=== PATIENT | female | born 1965 | race Hispanic/Latino ===

== ENCOUNTER 2019-09-24 15:42 | Observation (INO) | payer SELFPAY ==
[~2019-09-24] VITALS: Ht 152.4 cm; Wt 53.3 kg
[2019-09-24] MEDS ORDERED: MULTIVITAMINS- 12 INJECTION 10 ML, FOLIC ACID MDV 5 MG, THIAMINE HCL INJ 100 MG in SODI... IV ONE (16:30)
[2019-09-24 16:44] LABS: BASOPHILS # (AUTO) 0.1 (0.0-0.1); BASOPHILS % 1.4 % (0.0-1.0); EOSINOPHILS % 0.5 % (0.0-6.0); HEMATOCRIT 29.6 % (34.2-44.1); HEMOGLOBIN 9.7 g/dL (12.0-16.0); LYMPHOCYTES # (AUTO) 2.3 (1.0-3.2); LYMPHOCYTES % 27.6 % (18.0-39.1); MEAN CORPUSCULAR HEMOGLOBIN 29.1 pg (28-32); MEAN CORPUSCULAR HGB CONC 32.8 g/dL (31-35); MEAN CORPUSCULAR VOLUME 88.9 fL (81-99); MONOCYTES # (AUTO) 0.6 (0.2-0.8); MONOCYTES % 6.8 % (4.4-11.3); NEUTROPHILS # (AUTO) 5.4 (2.1-6.9); NEUTROPHILS % 63.3 % (38.7-80.0); PLATELET COUNT 85 x10e3/uL (140-360); RED BLOOD COUNT 3.33 x10e6/uL (3.6-5.1); RED CELL DISTRIBUTION WIDTH 19.4 % (11.7-14.4)
[2019-09-24 16:56] LABS: ALANINE AMINOTRANSFERASE 24 IU/L (0-55); ALBUMIN 3.6 g/dL (3.5-5.0); ALBUMIN/GLOBULIN RATIO 0.6 (0.8-2.0); ALKALINE PHOSPHATASE 225 IU/L (40-150); ANION GAP 20.4 mmol/L (8-16); BLOOD UREA NITROGEN < 5 mg/dL (7-26); CALCIUM 8.2 mg/dL (8.4-10.2); CARBON DIOXIDE 21 mmol/L (22-29); CHLORIDE 90 mmol/L (98-107); CREATINE KINASE 92 IU/L (29-168); CREATININE, SERUM 0.53 mg/dL (0.57-1.11); EST GLOMERULAR FILTRATION RATE > 60 ML/MIN (60-); GLUCOSE 95 mg/dL (74-118); INR 1.14; POTASSIUM 3.4 mmol/L (3.5-5.1); PROTHROMBIN TIME 15.2 seconds (11.9-14.5); SODIUM 128 mmol/L (136-145)
[2019-09-24 16:58] LABS: BUN/CREATININE RATIO 9 (6-25)
--- NOTE | 2019-09-24 17:15 | Diagnostic Imaging Report ---
Exam: Head CT without contrast History: Altered mental status Comparison studies: None Technique: Axial images were obtained from the skull base to the vertex. Coronal and sagittal images reconstructed from the axial data. Dose modulation, iterative reconstruction, and/or weight based adjustment of the mA/kV was utilized to reduce the radiation dose to as low as reasonably achievable. Radiation dose: Total DLP: 1842 mGy*cm. Estimated effective dose: DLP x 0.015 Intravenous contrast: None Findings: Scalp: No abnormalities. Bones: No fractures, blastic or lytic lesions. Brain sulci: Prominent. Ventricles: Mild compensatory dilatation. No hydrocephalus. Extra-axial spaces: No masses, no fluid collection. Parenchyma: No mass, acute hemorrhage or acute or chronic cortical insults. Ill-defined confluent hypodensities throughout the supratentorial white matter are nonspecific but may be chronic microvascular ischemic changes. Sellar/suprasellar region: No abnormalities. Craniocervical junction: Patent foramen magnum. No Chiari one malformation. Incidental findings: Atherosclerotic calcifications in the carotid siphons.. IMPRESSION: No acute intracranial abnormalities. Chronic findings: 1. Moderate generalized parenchymal volume loss. 2. Moderate microvascular ischemic changes. Signed by: Dr. Terell Washburn M.D. on 09/24/2019 5:11 PM
[2019-09-24 17:53] LABS: CLARITY,URINE HAZY (CLEAR); COLOR,URINE YELLOW (YELLOW); KETONES,URINE NEGATIVE (NEGATIVE); LEUKOCYTE ESTERASE ,URINE TRACE (NEGATIVE); NITRITE,URINE POSITIVE (NEGATIVE); PROTEIN,URINE DIPSTICK NEGATIVE (NEGATIVE)
[2019-09-24 17:54] LABS: AMPHETAMINES SCREEN,URINE NEGATIVE (NEGATIVE); PHENCYCLIDINE SCREEN,URINE NEGATIVE (NEGATIVE)
[2019-09-24 17:55] LABS: BACTERIA,URINE MODERATE /HPF; BENZODIAZEPINES SCREEN,URINE NEGATIVE (NEGATIVE); BILIRUBIN,URINE NEGATIVE (NEGATIVE); EPITHELIAL CELLS,URINE FEW /LPF; RBC,URINE 0-5 /HPF (0-5); URINE UROBILINOGEN 0.2 mg/dL (0.2 - 1); WBC,URINE (MAN) 0-5 /HPF (0-5)
--- NOTE | 2019-09-24 17:56 | Emergency Department Note ---
History of Present Illnes History of Present Illness Chief Complaint: General Medicine Complaints History of Present Illness This is a 54 year old female PT BROUGHT IN BY HER BROTHER. MAN CAME TO FRONT WINDOW ASKED FOR HELP GETTING HIS SISTER GETTING OUT OF HIS TRUCK. RN'S X 2 CAME TO TRUCK WITH W/C AND PT STANDING AT TRUCK DOOR WITH HER PANTS DOWN TO HER ANKLES AND BEER CANS ALL IN TRUCK. BROTHER HANDED NURSES PAPERWORK FROM [facility] DATED 09/22/19 SENDING PT TO AN ER FOR ANEMIA, LOW PLATELETS, ELEVATED LIVER ENZYMES AND FATIGUE (DR TUCKER HENDERSON MD). PT IS AWAKE, CONFUSED, POOR HYGINE APPEARANCE. UNFILLED RX OF PAXIL, THIAMINE, AND PREDNISONE. PT AND BROTHER POOR HISTORIANS NOT FORTH COMING WITH ANY HELPFUL INFORMATION. Historian: Patient Arrival Mode: Car Direct Marketing Analyst Required: No Onset (how long ago): day(s) Radiation: Reports non-radiation Severity: moderate Onset quality: gradual Timing of current episode: intermittent Progression: waxing and waning Chronicity: new Context: Denies recent illness Relieving factors: none Exacerbating factors: none Associated symptoms: Reports denies other symptoms Treatments prior to arrival: none Past Medical/Family History Physician Review I have reviewed the patient's past medical and family history. Any updates have been documented here. Past Medical History Recent Fever: No Clinical Suspicion of Infectio: No New/Unexplained Change in Ment: No Past Medical History: Liver Disease Other Medical History: ?ETOH ABUSE/CIRROHSIS UNSURE Past Surgical History: None Social History Smoking Cessation: Unknown if ever smoked Counseling Performed: No Alcohol Use: Daily Any Illegal Drug Use: No TB Exposure/Symptoms: No Physically hurt or threatened: No Family History Family history of heart diseas: No Other Any Pre-Existing Lines (PICC,: No Review of Systems Review of Systems Constitutional: Reports no symptoms EENTM: Reports no symptoms Cardiovascular: Reports no symptoms Respiratory: Reports no symptoms Gastrointestinal: Reports no symptoms Genitourinary: Reports no symptoms Musculoskeletal: Reports no symptoms Integumentary: Reports no symptoms Neurological: Reports as per HPI Psychological: Reports no symptoms Endocrine: Reports no symptoms Hematological/Lymphatic: Reports no symptoms Physical Exam Related Data Allergies: Coded Allergies: No Known Allergies (Unverified , 09/24/19) Triage Vital Signs Vital Signs Date Time Temp Pulse Resp B/P (MAP) Pulse Ox O2 Delivery O2 Flow Rate FiO2 09/24/19 15:45 98.4 77 16 127/83 97 Room Air Vital signs reviewed: Yes Physical Exam CONSTITUTIONAL Constitutional: Present well-developed, Present well-nourished HENT HENT: Present normocephalic, Present atraumatic, Present oropharynx clear/moist, Present nose normal HENT L/R: Present left ext ear normal, Present right ext ear normal EYES Eyes: Reports PERRL, Reports conjunctivae normal NECK Neck: Present ROM normal PULMONARY Pulmonary: Present effort normal, Present breath sounds normal CARDIOVASCULAR Cardiovascular: Present regular rhythm, Present heart sounds normal, Present capillary refill normal, Present normal rate GASTROINTESTINAL Abdominal: Present soft, Present nontender, Present bowel sounds normal GENITOURINARY Genitourinary: Present exam deferred SKIN Skin: Present warm, Present dry MUSCULOSKELETAL Musculoskeletal: Present ROM normal NEUROLOGICAL Neurological: Present alert, Present no gross motor or sensory deficits, Present other (ORIENTED TO NAME AND TIME, NOT PLACE); Absent cranial nerve deficit, Absent sensory deficit, Absent weakness PSYCHOLOGICAL Psychological: Present mood/affect normal, Present judgement normal Results Laboratory Result Diagram: 09/24/19 1557 09/24/19 1557 Laboratory Laboratory Tests Test 09/24/19 17:12 09/24/19 15:57 White Blood Count 8.44 x10e3/uL (4.8-10.8) Red Blood Count 3.33 x10e6/uL (3.6-5.1) Hemoglobin 9.7 g/dL (12.0-16.0) Hematocrit 29.6 % (34.2-44.1) Mean Corpuscular Volume 88.9 fL (81-99) Mean Corpuscular Hemoglobin 29.1 pg (28-32) Mean Corpuscular Hemoglobin Concent 32.8 g/dL (31-35) Red Cell Distribution Width 19.4 % (11.7-14.4) Platelet Count 85 x10e3/uL (140-360) Neutrophils (%) (Auto) 63.3 % (38.7-80.0) Lymphocytes (%) (Auto) 27.6 % (18.0-39.1) Monocytes (%) (Auto) 6.8 % (4.4-11.3) Eosinophils (%) (Auto) 0.5 % (0.0-6.0) Basophils (%) (Auto) 1.4 % (0.0-1.0) Neutrophils # (Auto) 5.4 (2.1-6.9) Lymphocytes # (Auto) 2.3 (1.0-3.2) Monocytes # (Auto) 0.6 (0.2-0.8) Eosinophils # (Auto) 0.0 (0.0-0.4) Basophils # (Auto) 0.1 (0.0-0.1) Absolute Immature Granulocyte (auto 0.03 x10e3/uL (0-0.1) Prothrombin Time 15.2 seconds (11.9-14.5) Prothromb Time International Ratio 1.14 Activated Partial Thromboplast Time 40.0 seconds (23.8-35.5) Sodium Level 128 mmol/L (136-145) Potassium Level 3.4 mmol/L (3.5-5.1) Chloride Level 90 mmol/L (98-107) Carbon Dioxide Level 21 mmol/L (22-29) Anion Gap 20.4 mmol/L (8-16) Blood Urea Nitrogen < 5 mg/dL (7-26) Creatinine 0.53 mg/dL (0.57-1.11) Estimat Glomerular Filtration Rate > 60 ML/MIN (60-) BUN/Creatinine Ratio 9 (6-25) Glucose Level 95 mg/dL (74-118) Calcium Level 8.2 mg/dL (8.4-10.2) Total Bilirubin 1.6 mg/dL (0.2-1.2) Aspartate Amino Transf (AST/SGOT) 138 IU/L (5-34) Alanine Aminotransferase (ALT/SGPT) 24 IU/L (0-55) Alkaline Phosphatase 225 IU/L (40-150) Creatine Kinase 92 IU/L (29-168) Creatine Kinase MB 1.40 ng/mL (0-5.0) Troponin I 0.003 ng/mL (0-0.300) Total Protein 9.5 g/dL (6.5-8.1) Albumin 3.6 g/dL (3.5-5.0) Globulin 5.9 g/dL (2.3-3.5) Albumin/Globulin Ratio 0.6 (0.8-2.0) Lab results reviewed: Yes Imaging Imaging results reviewed: Yes Impressions CT BRAIN WITHOUT CONTRAST IMPRESSION: No acute intracranial abnormalities. Chronic findings: 1. Moderate generalized parenchymal volume loss. 2. Moderate microvascular ischemic changes. Signed by: Dr. Terell Washburn M.D. on 09/24/2019 5:11 PM Procedures 12 Lead ECG Interpretation ECG Interpretation : ECG: ECG 1 Direct Marketing Analyst: Interpreted by ED physician Date: Sep 24, 2019 Time: 16:12 Rhythm: sinus rhythm Rate: normal (75) QRS axis: normal ST segments normal: Yes T waves normal: Yes Clinical Impression: normal ECG Critical Care Time Total Critical Care Time (min): 30 Critical care time exclusive o: separately billable procedures Critcal care necessary due to: LADLE MECHANIC failure or compromise, hepatic failure, metabolic failure Critcal care time spent by me: discussion w primary provider, evaluation patient response to tx, examination of patient, order/perform tx or interventions, order/review laboratory studies, order/review radiographic studies, re-evaluation of patient condition Assessment & Plan Medical Decision Making MDM AMS, APPEARS TO BE ALCOHOLIC WITH LIKELY CIRRHOSIS - CBC, CHEM, ECG, CARDIACS, CT BRAIN, CXR, NH3, UA, LACTIC, BLD CX'S - R/O SEPSIS, HEPATIC ENCEPH, VLADISLAV CTROLYTE ABNL, UTI, STEMI/NSTEMI, SDH/EPIDURAL BLEED, CVA Reassessment Reassessment PT STILL NOT ORIENTED AND WITH ETOH 481 AND ELEVATED NH3 SHE IS NOT COMPETENT TO LEAVE - SHE TOLD NURSE SHE WAS GOING HOME. I EXPLAINED REASONS SHE NEEDS TO STAY OVERNIGHT AND SEEMED TO UNDERSTAND AND AGREES TO STAY Assessment & Plan Final Impression: (1) Altered mental status (2) Hyponatremia (3) Hypomagnesemia (4) Hepatic encephalopathy (5) Alcoholic cirrhosis of liver (6) ETOH abuse Depart Disposition: ADMITTED Last Vital Signs Date Time Temp Pulse Resp B/P (MAP) Pulse Ox O2 Delivery O2 Flow Rate FiO2 09/24/19 16:42 76 16 106/74 98 Room Air 09/24/19 15:45 98.4 Medications in the ED Multivitamins 10 ml/Folic Acid 5 mg/Thiamine HCl 100 mg/Sodium Chloride 1,012 ml @ 250 mls/hr Q4H3M ONCE IV ; Start 09/24/19 at 16:30; Stop 09/24/19 at 20:32 VNO MARIN MD Sep 24, 2019 17:56
--- NOTE | 2019-09-24 18:03 | Diagnostic Imaging Report ---
EXAMINATION: CHEST SINGLE (PORTABLE) INDICATION: Altered mental status COMPARISON: None FINDINGS: TUBES and LINES: None. LUNGS: Normal lung volumes. Lungs are clear. No consolidations. Bibasilar atelectasis. PLEURA: No pleural effusion or pneumothorax. HEART AND MEDIASTINUM: The cardiomediastinal silhouette is unremarkable. BONES AND SOFT TISSUES: No acute osseous lesion. Soft tissues are unremarkable. UPPER ABDOMEN: No free air under the diaphragm. IMPRESSION: No acute thoracic radiographic abnormality. Bibasilar atelectasis. Signed by: Deepak Connolly MD on 09/24/2019 6:00 PM
[2019-09-24] MEDS ORDERED: MAGNESIUM SULFATE 2GM/50ML 50 ML IV ONE (18:30)
[2019-09-24] MEDS ORDERED: LORAZEPAM INJ 2 MG/ML VIAL IV PRN (18:45)
--- OUTSIDE RECORDS SUMMARY | 2019-09-24 18:54 | XMS REPORT | Continuity of Care Document ---
Author Author [facility] Organization [facility] Address [address] [place] [address] Dr. [address] [place] [id number] Phone Unavailable Care Team Providers Care Shirt Trimmer Name Role Phone Lisa MARIN Attphys Unavailable Problems This patient has no known problems. Allergies, Adverse Reactions, Alerts This patient has no known allergies or adverse reactions. Medications This patient has no known medications. Procedures This patient has no known procedures. Results Test Description Test Time Test Comments Results Result Comments Source CHEST SINGLE (PORTABLE) 2019-09-24 17:47:00 [facility] [address] [place] [address] Patient Name: ADDY STEWARD MR #: [id number] : 1965 Age/Sex: 54/F Req #: [id number] Adm Physician: Ordered by: VON MARIN MD Report #: [id number] Location: ER Room/Bed: Procedure: [id number] DX/CHEST SINGLE (PORTABLE) Exam Date: 09/24/19 Exam Time: 1640 REPORT STATUS: Signed EXAMINATION: CHEST SINGLE (PORTABLE) INDICATION: Altered mental status COMPARISON: None FINDINGS: TUBES and LINES: None. LUNGS: Normal lung volumes. Lungs are clear. No consolidations. Bibasilar atelectasis. PLEURA: No pleural effusion or pneumothorax. HEART AND MEDIASTINUM: The cardiomediastinal silhouette is unremarkable. BONES AND SOFT TISSUES: No acute osseous lesion. Soft tissues are unremarkable. UPPER ABDOMEN: No free air under the diaphragm. IMPRESSION: No acute thoracic radiographic abnormality. Bibasilar atelectasis. Signed by: Nba Mead MD on 09/24/2019 6:00 PM Dictated By: NBA MEAD MD 1800 Transcribed By: HARDIK on 09/24/19 1800 COPY TO: VON MARIN MD CT BRAIN WO 2019-09-24 17:06:00 [place] [address] Patient Name: ADDY STEWARD MR #: [id number] : 1965 Age/Sex: 54/F Req #: [id number] Adm Physician: Ordered by: VON MARIN MD Report #: [id number] Location: ER Room/Bed: Procedure: [id number] CT/CT BRAIN WO Exam Date: 09/24/19 Exam Time: 1640 REPORT STATUS: Signed Exam: Head CT without contrast History: Altered mental status Comparison studies: None Technique: Axial images were obtained from the skull base to the vertex. Coronal and sagittal images reconstructed from the axial data. Dose modulation, iterative reconstruction, and/or weight based adjustment of the mA/kV was utilized to reduce the radiation dose to as low as reasonably achievable. Radiation dose: Total DLP: 1842 mGy*cm. Estimated effective dose: DLP x 0.015 Intravenous contrast: None Findings: Scalp: No abnormalities. Bones: No fractures, blastic or lytic lesions. Brain sulci: Prominent. Ventricles: Mild compensatory dilatation. No hydrocephalus. Extra-axial spaces: No masses, no fluid collection. Parenchyma: No mass, acute hemorrhage or acute or chronic cortical insults. Ill-defined confluent hypodensities throughout the supratentorial white matter are nonspecific but may be chronic microvascular ischemic changes. Sellar/suprasellar region: No abnormalities. Craniocervical junction: Patent foramen magnum. No Chiari one malformation. Incidental findings: Atherosclerotic calcifications in the carotid siphons.. IMPRESSION: No acute intracranial abnormalities. Chronic findings: 1. Moderate generalized parenchymal volume loss. 2. Moderate microvascular ischemic changes. Signed by: Dr. Nidia Washburn M.D. on 09/24/2019 5:11 PM Dictated By: NIDIA WASHBURN MD 10 Transcribed By: HARDIK on 09/24/191710 COPY TO: VON MARIN MD
[2019-09-24] MEDS ORDERED: CEFTRIAXONE SOD 1 GM/NS 50 ML 50 ML IV ONE (19:00)
--- NOTE | 2019-09-24 19:40 | NUR ---
Patient arrived to unit from ER. Currently awake and resting in bed, respirations even and unlabored on room air, vital signs stable, no s/s of distress at this time. Telemetry showing sinus rhythm. Patient oriented to room, hospital policies, and plan of care. Bed locked and in lowest position, side rails upx3, alarm on, call light placed within reach. Patient instructed to call for assistance if needed, verbalized understanding. All safety measures in place.
[2019-09-24 20:00] VITALS: BP 127/75
[2019-09-24 20:07] VITALS: BP 127/75
[2019-09-24] MEDS ORDERED: B-1100 M1 PO (20:29)
[2019-09-24] MEDS ORDERED: PREDNISONE10 MG PO (20:29)
[2019-09-24] MEDS ORDERED: PAXIL10 MG PO (20:29)
--- NOTE | 2019-09-24 20:30 | NUR ---
Med rec completed. Patient reporting that she recently received 3 written prescriptions from a local clinic but has not yet filled them. Copy placed on chart.
[2019-09-24] MEDS: KCL 20MEQ/.9 SOD CHL 1,000 ML IV SCH (23:29)
[2019-09-25 00:01] VITALS: BP 120/74
[2019-09-25 04:12] VITALS: BP 112/72
[2019-09-25] MEDS: KCL 20MEQ/.9 SOD CHL 1,000 ML IV SCH (06:11)
[2019-09-25 06:25] LABS: BASOPHILS # (AUTO) 0.1 (0.0-0.1); BASOPHILS % 1.2 % (0.0-1.0); EOSINOPHILS # (AUTO) 0.1 (0.0-0.4); EOSINOPHILS % 0.9 % (0.0-6.0); HEMATOCRIT 28.2 % (34.2-44.1); LYMPHOCYTES # (AUTO) 1.2 (1.0-3.2); LYMPHOCYTES % 15.2 % (18.0-39.1); MEAN CORPUSCULAR HEMOGLOBIN 29.1 pg (28-32); MEAN CORPUSCULAR HGB CONC 31.9 g/dL (31-35); MEAN CORPUSCULAR VOLUME 91.3 fL (81-99); MONOCYTES # (AUTO) 0.8 (0.2-0.8); MONOCYTES % 9.7 % (4.4-11.3); NEUTROPHILS # (AUTO) 5.9 (2.1-6.9); NEUTROPHILS % 72.8 % (38.7-80.0); RED BLOOD COUNT 3.09 x10e6/uL (3.6-5.1); RED CELL DISTRIBUTION WIDTH 19.9 % (11.7-14.4)
--- NOTE | 2019-09-25 06:31 | NUR ---
Patient resting quietly in bed, respirations even and unlabored on room air, no s/s of distress at this time. IV fluids running as ordered. Bed locked and in lowest position, side rails upx3, alarm on, call light placed within reach. All safety measures in place.
[2019-09-25 06:52] LABS: ALANINE AMINOTRANSFERASE 21 IU/L (0-55); ALBUMIN/GLOBULIN RATIO 0.6 (0.8-2.0); ALKALINE PHOSPHATASE 188 IU/L (40-150); BLOOD UREA NITROGEN < 5 mg/dL (7-26); CALCIUM 7.2 mg/dL (8.4-10.2); CARBON DIOXIDE 22 mmol/L (22-29); CHLORIDE 105 mmol/L (98-107); CREATININE, SERUM 0.49 mg/dL (0.57-1.11); EST GLOMERULAR FILTRATION RATE > 60 ML/MIN (60-); GLUCOSE 78 mg/dL (74-118); MAGNESIUM 1.3 MG/DL (1.3-2.1); SODIUM 142 mmol/L (136-145)
[2019-09-25 06:54] LABS: BUN/CREATININE RATIO 10 (6-25)
--- NOTE | 2019-09-25 07:04 | NUR ---
Dr. Almendarez here to see patient. Received orders to DC NS/KCl, give patient one more banana bag, and consult social work manager to plan for possible discharge today.
--- NOTE | 2019-09-25 07:08 | NUR ---
Informed Dr. Almendarez of potassium level 3.0. Received orders to give 20 mEq IV once.
[2019-09-25] MEDS ORDERED: POTASSIUM CHLORIDE 20MEQ/100ML 100 ML IV ONE (07:15)
[2019-09-25] MEDS ORDERED: MULTIVITAMINS- 12 INJECTION 10 ML, FOLIC ACID MDV 5 MG, THIAMINE HCL INJ 100 MG in SODI... IV ONE (07:15)
[2019-09-25 07:55] VITALS: BP 147/97
[2019-09-25] MEDS ORDERED: LACTULOSE SYRUP 20 GM/30 ML UDC PO ONE (08:00)
[2019-09-25] MEDS ORDERED: LACTULOSE20 GM/30 M PO (08:50)
[2019-09-25] MEDS ORDERED: CHLORDIAZEPOXID25 MG PO (08:50)
[2019-09-25] MEDS ORDERED: THIAMINE HCL 100 MG TAB PO SCH ×2 (09:00)
[2019-09-25] MEDS ORDERED: PAROXETINE HCL 20 MG TAB PO SCH (09:00)
[2019-09-25 09:32] LABS: PLATELET COUNT 81 x10e3/uL (140-360)
[2019-09-25 11:26] VITALS: BP 127/78
[2019-09-25] MEDS: CHLORDIAZEPOXIDE HCL 25 MG CAP PO SCH ×2 (11:33→16:32)
[2019-09-25] MEDS: ONDANSETRON HCL INJ 2MG/ML 2ML 2 MG/ML VIAL IV PRN ×2 (11:33→16:32)
--- NOTE | 2019-09-25 12:43 | Diagnostic Imaging Report ---
EXAM: Liver Ultrasound INDICATION: History of cirrhosis who presents with abdominal pain. COMPARISON: None. TECHNIQUE: Transverse and longitudinal images of the liver were obtained. FINDINGS: Liver: Size: 15.6 cm in the right midclavicular line, enlarged. Appearance: Diffusely echogenic with nodular contour. Mass: No focal masses Main portal vein: Normal caliber 1.2 cm with hepatopedal flow. Right kidney: Measures 11.5 x 4.8 x 4.5 cm, normal. Pancreas the pancreatic head appears normal. Pancreas body and tail are not visualized. Gallbladder: No evidence of cholelithiasis or cholecystitis. Gallbladder wall thickness is normal measuring 0.3 cm. Bile Ducts: Intrahepatic Ducts: No dilatation Extrahepatic Ducts: Limited Common bile duct has normal caliber measuring 0.4 centers. Free Fluid: No ascites or pleural effusion IMPRESSION: 1. Slightly echogenic liver with nodular contour suggestive of a cirrhotic liver. No focal hepatic lesions identified. 2. No evidence of cholelithiasis or cholecystitis. Signed by: Deepak Connolly MD on 09/25/2019 12:40 PM
--- NOTE | 2019-09-25 14:23 | History and Physical ---
CHIEF COMPLAINT: The patient is a 54-year-old lady comes in for acute alcoholic intoxication. HISTORY PRESENTING ILLNESS: A 54-year-old lady came in, was brought in by her mother. The patient was intoxicated on alcohol, came into the emergency room and has been appropriate in presentation. Her alcohol levels were found to be at 481.8. The patient was admitted for acute alcohol intoxication and cirrhosis of the liver and acute mental status changes. is an alcoholic with history of cirrhosis of the liver, was seen recently in the clinic, and was given prednisone 2 mg once a day for 10 days and also Paxil for her depression and an evaluation was sent for the emergency room for evaluating her cirrhosis. PAST SURGICAL HISTORY: History of cholecystectomy, otherwise noncontributory. SOCIAL HISTORY: Positive for abuse of alcohol. The patient also has a history of smoking. OTHER MEDICAL HISTORY: Includes history of liver disease, which is recently diagnosed. SOCIAL HISTORY: The patient is , not aware of her or her living stature right now. REVIEW OF SYSTEMS: Negative for chest pain. No shortness of breath. The patient has no nausea, vomiting, diarrhea, constipation, rectal bleeding, positive for some abdominal distention and no diplopia. No blurry vision. ALLERGIES: NO DRUG ALLERGIES NOTED. FAMILY HISTORY: Noncontributory and cannot assess. PHYSICAL EXAMINATION: GENERAL: The patient is alert and oriented x3 right now. VITAL SIGNS: Temperature is 98.4, pulse of 80, respirations 16, blood pressure is 112/72, pulse oximetry of 95%. HEENT: Normocephalic, very poor dental hygiene. CVS: S1 and S2 normal, regular rate and rhythm. ABDOMEN: Distended. Signs of portal hypertension. EXTREMITIES: No clubbing, no cyanosis, no edema. The patient looks emaciated. LABORATORY VALUES: Opiates are negative. Acetaminophen less than 3. Ethyl alcohol is 481.8. SEROLOGY: Coronavirus is pending. HEMATOLOGY: White count is 8.44, hemoglobin of 9.7, hematocrit of 29.6, RDW of 19.4. Chemistries show sodium of 128, potassium 3.4, BUN of less than 5, creatinine 0.53. Lactic acid initial one was 2.7 and lactic acid was normalized to 1.3, calcium of 8.2 today at 7.2, magnesium of 1, replaced 1.3, bilirubin of 1.6 and 1.3, AST 138, ALT of 24, alkaline phosphatase of 225. Troponin 0.03. Coags, INR is 1.14, and platelets 81. Coags are normal. MICROBIOLOGY: Urine culture and blood cultures pending. IMAGING STUDIES: Chest x-ray shows no acute radiographic abnormalities. Brain CT shows moderate generalized parenchymal volume loss with moderate microvascular ischemic changes. ASSESSMENT: 1. Ms. Emerita Garcia with alcohol intoxication with elevated alcohol levels. The patient has been given help and also has been talked about AAA. The patient is very reluctant. Social service consult will be done for help with alcoholic anonymous and also alcohol withdrawal groups and also websites to go to and help. 2. Cirrhosis of the liver, we will do an ultrasound of the liver before discharge. The patient also will be given lactulose for encephalopathy. A prescription has been written for this. The patient will also get vitamin B12 replacement and thiamine replacement with banana bags. We will continue with this. For her elevated lactic acid has normalized, no need of antibiotic at this time. The patient also will get Librium 25 mg q.6 hours as needed for withdrawal if needed and portal hypertension. The patient has been given adequate resources to follow up with and needs a lot of family support, which will be conveyed. Further recommendations per clinical course. The patient can be discharged if her alcohol levels are down and ammonia levels are down. Ultrasound of the liver will be done. MD KIT Waite/MODL /[id number]
[2019-09-25 15:48] VITALS: BP 137/84
--- NOTE | 2019-09-25 16:00 | NUR ---
Notified of ammonia level, toxicology results, and ultrasound result
--- NOTE | 2019-09-25 16:24 | NUR ---
CM CALLED AND SPOKE W PT. STATES SHE DOES NOT HAVE INSURANCE. STATES SHE WENT TO [facility] BECAUSE SHE WAS WALKING FUNNY AND WAS GIVEN PRESCRIPTIONS. PT STATES SHE DRINKS BECAUSE SHE LIKES IT AND HAS BEEN DRINKING FOR ABOUT 6 YEARS. STATES SHE WOULD LIKE HELP. CM EXPLAINED INFO PROVIDED TO THE PT FOR ETOH ABUSE ASSISTANCE. ALSO DISCUSSED APPLYING FOR THE GOLD CARD; APPLICATION PROVIDED IN INDIGENT PACKET. PT INFORMED OF PRESCRIPTION INFO IN PACKET.
--- NOTE | 2019-09-25 17:42 | NUR ---
Right AC IV discontinued. No signs of infiltration noted. 2x2 gauze and coban placed. Taken via wheelchair to personal car. AAOX3 to time, person, place. Respirations even and unlabored. Denies pain. Discharge instructions, rx, and all personal belonging taken with patient. Accompanied by brother.
[2019-09-25] MEDS ORDERED: LACTULOSE SYRUP 20 GM/30 ML UDC PO SCH (21:00)
== END 2019-09-25 18:48 | disposition home or self-care (01) ==
LOC: ER 16:38 → ERHOLD 18:42 → MED/SURG3 19:56 → MED/SURG2 09-25 13:15
PROVIDERS: ADMIT Family Medicine; ATTEND Family Medicine
DX: K70.40 Alcoholic hepatic failure without coma (principal); E87.1 Hypo-osmolality and hyponatremia; E83.42 Hypomagnesemia; K70.30 Alcoholic cirrhosis of liver without ascites; F10.120 Alcohol abuse with intoxication, uncomplicated; Y90.8 Blood alcohol level of 240 mg/100 ml or more; Z87.891 Personal history of nicotine dependence; Z11.59 Encounter for screening for other viral diseases
CPT/HCPCS: 36415; 70450; 71045; 76705; 80053; 80307; 80320; 80329; 81001; 82140; 82550; 82553; 83605; 83735; 84484; 85025; 85610; 85730; 87040; 87086; 87186; 93005; 99284; G0378; J0696; J2405; J3411; J3475; J3480; J7030; U0002

== ENCOUNTER 2019-10-08 12:51 | Emergency (ER) | payer SELFPAY ==
[~2019-10-08] VITALS: Ht 152.4 cm; Wt 53.1 kg
[~2019-10-08 12:51] MED LIST: B-1100 M1 PO; CHLORDIAZEPOXID25 MG PO; LACTULOSE20 GM/30 M PO; PAXIL10 MG PO; PREDNISONE10 MG PO
--- OUTSIDE RECORDS SUMMARY | 2019-10-08 13:55 | XMS REPORT | Continuity of Care Document ---
Author Author [facility] t Organization [facility] Address [address] [place] [address] Phone Unavailable Care Team Providers Care Batch Trucker Name Role Phone NO, PCP PCP Unavailable Tara CHOI Attphys Unavailable Tara CHOI OCTAVIO Admphys Unavailable Problems Condition Name Condition Details Condition Category Status Onset Date Resolution Date Last Treatment Date Treating Clinician Comments Source Hepatic encephalopathy Problem Active [facility] Alcoholic cirrhosis Problem Active [facility] Hypomagnesemia Problem Active [facility] Hyponatremia Problem Active [facility] Altered mental status Problem Active [facility] Allergies, Adverse Reactions, Alerts This patient has no known allergies or adverse reactions. Social History Social Habit Start Date Stop Date Quantity Comments Source Sex Assigned At 1965 00:00:00 1965 00:[birth year]:00 Female [facility] Medications Ordered Medication Name Filled Medication Name Start Date Stop Da te Current Medication? Ordering Clinician Indication Dosage Frequency Signature (SIG) Comments Components Source Chlordiazepoxide Hcl Chlordiazepoxide Hcl Yes 25 Every 6 Hours as needed for Restlessness [facility] Lactulose Lactulose Yes 30 Three Times A Day [facility] Paroxetine Hcl (Paxil) 10 Mg TABLET Paroxetine Hcl (Paxil) 10 Mg TABL ET Yes 10 Daily [facility] Prednisone Prednisone Yes 10 Daily [facility] Thiamine Hcl (B-1) 100 Mg TABLET Thiamine Hcl (B-1) 100 Mg TABLET Yes 100 Daily [facility] Vital Signs Vital Name Observation Time Observation Value Comments Source Body Temperature 2019-09-25 15:48:00 98.8 [degF] [facility] Weight 2019-09-24 20:05:00 117.50 [lb_av] [facility] BMI (Body Mass Index) 2019-09-24 20:05:00 22.9 kg/m2 [facility] Procedures Procedure Date / Time Performed Performing Clinician Charles CAMACHO Liver 2019-09-25 00:00:00 [facility] Computed tomography of brain without radiopaque contrast 2019-09 00:00:00 [facility] Plan of Care Planned Activity Planned Date Details Comments Source Instructions Alcoholism [facility] Instructions Infection Control [facility] Instructions Fall Prevention [facility] Encounters Start Date/Time End Date/Time Encounter Type Admission Type [facility] Care Department Encounter ID Source 2019-09-24 18:42:00 2019-09-25 18:48:00 Discharged Inpatient (obs) 1 OCTAVIO CHOI [facility] [id number] I [facility] Results Test Description Test Time Test Comments Results Result Comments Source Ammonia Ser-mCnc 2019-09-25 15:21:00 Test Item Ammonia (test code = 61349-2) 74 31-123 [facility] ethanol measurement (mass/volume)2019-09-25 13:21:00* Test Item Value Reference Range Interpretation Comments Ethyl Alcohol Level (test code = 5643-2) 51.2 0.0-10.0 [facility] [id number] 12:31:00 [facility] [address] [place] [address] Patient Name: ADDY STEWARD MR #: [id number] : 1965 Age/Sex: 54/F Req #: [id number] Adm Physician: OCTAVIO CHOI MD Ordered by: OCTAVIO CHOI MD Report #: [id number] Location: MED/SURG3 Room/Bed: [facility] Procedure: [id number] US/US LIVER Exa m Date: 09/25/19 Exam Time: 1104 REPORT STATUS: Signed EXAM: Liver Ultrasound INDIC ATION: History of cirrhosis who presents with abdominal pain. COMPARISON: No ne. TECHNIQUE: Transverse and longitudinal images of the liver were obtained. FINDINGS: Liver: Size: 15.6 cm in the right midclavicular l ine, enlarged. Appearance: Diffusely echogenic with nodular contour. Mass: No focal masses Main portal vein: Normal caliber 1.2 cm with he patopedal flow. Right kidney: Measures 11.5 x 4.8 x 4.5 cm, normal. Pa ncreas the pancreatic head appears normal. Pancreas body and tail are not visu alized. Gallbladder: No evidence of cholelithiasis or cholecystitis. Gallbl adder wall thickness is normal measuring 0.3 cm. Bile Ducts: Intra hepatic Ducts: No dilatation Extrahepatic Ducts: Limited Common bile du ct has normal caliber measuring 0.4 centers. Free Fluid: No ascites or pleural effusion IMPRESSION: 1. Slightly echogenic liver with nodular contour suggestive of a cirrhotic liver. No focal hepatic lesions identified. 2. No evidence of cholelithiasis or cholecystitis. Signed by: Nba bashir MD on 09/25/2019 12:40 PM Dictated By: NBA MEAD MD Electronical ly Signed By: NBA MEAD MD on 09/25/19 1240 Transcribed By: HARDIK on 04/14 1240 COPY TO: OCTAVIO CHOI MD Blood leukocytes automated count (number/volume)2019-09-25 05:45:00* Test Item Value Reference Range Interpretation Comments White Blood Count (test code = 6690-2) 8.11 4.8-10.8 [facility] erythrocytes automated count (number/volume)2019-09-25 05:45:00* Test Item Value Reference Range Interpretation Comments Red Blood Count (test code = 789-8) 3.09 3.6-5.1 [facility] hemoglobin measurement (moles/volume)2019-09-25 05:45:00* Test Item Value Reference Range Interpretation Comments Hemoglobin (test code = 48160-7) 9.0 12.0-16.0 [facility]and[facility] blood hematocrit (volume fraction)2019-09-25 05:45:00* Test Item Value Reference Range Interpretation Comments Hematocrit (test code = 4544-3) 28.2 34.2-44.1 [facility]andAutomated erythrocyte mean corpuscular sitbme0357-43-81 05:45:00* Test Item Value Reference Range Interpretation Comments Mean Corpuscular Volume (test code = 787-2) 91.3 81-99 [facility]andAutom[facility] erythrocyte mean corpuscular hemoglobin (mass per erythrocyte)2019-09-25 05:45:00* Test Item Value Reference Range Interpretation Comments Mean Corpuscular Hemoglobin (test code = 785-6) 29.1 28-32 [facility]andAutomated erythrocyte mean corpuscular hemoglobin concentration measurement (mass/volume)2019-09-25 05:45:00* Test Item Value Reference Range Interpretation Comments Mean Corpuscular Hemoglobin Concent (test code = 786-4) 31.9 31-35 [facility]andRDW SpzRb-Uya4501-09-02 05:45:00* Test Item Value Reference Range Interpretation Comments Red Cell Distribution Width (test code = 31728-8) 19.9 11.7 -14.4 [facility]and[facility]ated blood platelet count (count/volume)2019-09-25 05:45:00* Test Item Value Reference Range Interpretation Comments Platelet Count (test code = 777-3) 81 140-360 NO EDTA PLT CLUMPS SEEN --- 09/25/1932 ---PLT previously reported as: 81 L x10e3/uL [facility]andAutomated blood segmented neutrophil count as percentage of total rzrrmixyjm1244-02-06 05:45:00* Test Item Value Reference Range Interpretation Comments Neutrophils (%) (Auto) (test code = 06636-9) 72.8 38.7-80.0 [facility]and[facility] blood lymphocyte count as percentage ot total jobvxxaqol8048-18-56 05:45:00* Test Item Value Reference Range Interpretation Comments Lymphocytes (%) (Auto) (test code = 736-9) 15.2 18.0-39.1 [facility]andAutomated blood monocyte count as percentage of total lpqjgxlwza5962-68-84 05:45:00* Test Item Value Reference Range Interpretation Comments Monocytes (%) (Auto) (test code = 5905-5) 9.7 4.4-11.3 [facility] eosinophil count as percentage of total bucbyxvyay8345-77-09 05:45:00* Test Item Value Reference Range Interpretation Comments Eosinophils (%) (Auto) (test code = 713-8) 0.9 0.0-6.0 [facility]and[facility] blood basophil count as percentage of total iascxjlqph8297-79-98 05:45:00* Test Item Value Reference Range Interpretation Comments Basophils (%) (Auto) (test code = 706-2) 1.2 0.0-1.0 [facility]andFluoroscopic procedure less than one hour wbvwyict7400-60-50 05:45:00* Test Item Value Reference Range Interpretation Comments IM GRANULOCYTES % (test code = IM GRANULOCYTES %) 0.2 0.0- 1.0 [facility]andAutomated blood neutrophil count 2019-09-25 05:45:00* Test Item Value Reference Range Interpretation Comments Neutrophils # (Auto) (test code = 751-8) 5.9 2.1-6.9 [facility] lymphocytes count (number/volume) 2019-09-25 05:45:00* Test Item Value Reference Range Interpretation Comments Lymphocytes # (Auto) (test code = 25659-7) 1.2 1.0-3.2 [facility] monocytes automated count (number/volume)2019-09-25 05:45:00* Test Item Value Reference Range Interpretation Comments Monocytes # (Auto) (test code = 742-7) 0.8 0.2-0.8 [facility]andAutomated blood eosinophil count 2019-09-25 05:45:00* Test Item Value Reference Range Interpretation Comments Eosinophils # (Auto) (test code = 711-2) 0.1 0.0-0.4 [facility]andAutomated blood basophil count (count/volume)2019-09-25 05:45:00* Test Item Value Reference Range Interpretation Comments Basophils # (Auto) (test code = 704-7) 0.1 0.0-0.1 [facility]andFluoroscopic procedure less than one hour bszvwsli5757-43-49 05:45:00* Test Item Value Reference Range Interpretation Comments Absolute Immature Granulocyte (auto (espinoza t code = Absolute Immature Granulocyte (auto) 0.02 0-0.1 [facility] sodium measurement (moles/volume)2019-09-25 05:45:00* Test Item Value Reference Range Interpretation Comments Sodium Level (test code = 2951-2) 142 136-145 [facility] or plasma potassium measurement (moles/volume)2019-09-25 05:45:00* Test Item Value Reference Range Interpretation Comments Potassium Level (test code = 2823-3) 3.0 3.5-5.1 [facility] or plasma chloride measurement (moles/volume)2019-09-25 05:45:00* Test Item Value Reference Range Interpretation Comments Chloride Level (test code = 2075-0) 105 98-107 [facility] or plasma carbon dioxide, total measurement (moles/volume)2019-09-25 05:45:00* Test Item Value Reference Range Interpretation Comments Carbon Dioxide Level (test code = 2028-9) 22 22-29 [facility] or plasma anion zrz6450-49-38 05:45:00* Test Item Value Reference Range Interpretation Comments Anion Gap (test code = 37574-6) 18.0 8-16 [facility] or plasma urea nitrogen measurement (mass/volume)2019-09-25 05:45:00* Test Item Value Reference Range Interpretation Comments Blood Urea Nitrogen (test code = 3094-0) < 5 7-26 [facility] or plasma creatinine measurement (mass/volume)2019-09-25 05:45:00* Test Item Value Reference Range Interpretation Comments Creatinine (test code = 2160-0) 0.49 0.57-1.11 [facility] or plasma urea nitrogen/creatinine mass kdehd6440-21-00 05:45:00* Test Item Value Reference Range Interpretation Comments BUN/Creatinine Ratio (test code = 3097-3) 10 6-25 [facility]andEstimated glomerular filtration rate (GFR) pllqysjuikcap7555-36-18 05:45:00* Test Item Value Reference Range Interpretation Comments Estimat Glomerular Filtration Rate (test code = 385722523) > 60 >60 Ranges were taken from the National Kidney Disease Education Program and the [facility] Foundation literature.Reference ranges:60 or greater: Ylplxe88-32 ( for 3 consecutive months): Chronic kidney disease 15 or less: Kidney failureCovenant Health LevellandGlucose ztyjnsoenvf8553-09-90 05:45:00* Test Item Value Reference Range Interpretation Comments Glucose Level (test code = MRX2796) 78 74-118 [facility] or plasma calcium measurement (mass/volume)2019-09-25 05:45:00* Test Item Value Reference Range Interpretation Comments Calcium Level (test code = 88434-0) 7.2 8.4-10.2 [facility]andFluoroscopic procedure less than one hour lrusjkge1741-34-76 05:45:00* Test Item Value Reference Range Interpretation Comments Lactic Acid Level (test code = Lactic Acid Level) 1.3 0.5- 2.0 [facility] or plasma magnesium measurement (mass/volume)2019-09-25 05:45:00* Test Item Value Reference Range Interpretation Comments Magnesium Level (test code = 68477-7) 1.3 1.3-2.1 [facility] or plasma total bilirubin measurement (mass/volume)2019-09-25 05:45:00* Test Item Value Reference Range Interpretation Comments Total Bilirubin (test code = 1975-2) 1.3 0.2-1.2 [facility]andFluoroscopic procedure less than one hour hcrkvzem1675-21-64 05:45:00* Test Item Value Reference Range Interpretation Comments Aspartate Amino Transf (AST/SGOT) (test code = Aspartate Amino Transf (AST/SGOT)) 136 5-34 [facility] or plasma alanine aminotransferase measurement (enzymatic activity/volume)2019-09-25 05:45:00* Test Item Value Reference Range Interpretation Comments Alanine Aminotransferase (ALT/SGPT) (test code = 1742-6) 21 0-55 [facility] or plasma protein measurement (mass/volume)2019-09-25 05:45:00* Test Item Value Reference Range Interpretation Comments Total Protein (test code = 2885-2) 8.1 6.5-8.1 [facility] plasma albumin measurement (mass/volume)2019-09-25 05:45:00* Test Item Value Reference Range Interpretation Comments Albumin (test code = 1751-7) 3.0 3.5-5.0 [facility]andPlasma globulin measurement (mass/volume) 2019-09-25 05:45:00* Test Item Value Reference Range Interpretation Comments Globulin (test code = 49717-2) 5.1 2.3-3.5 [facility] or plasma albumin/globulin mass plcrz0675-23-27 05:45:00* Test Item Value Reference Range Interpretation Comments Albumin/Globulin Ratio (test code = 1759-0) 0.6 0.8-2.0 [facility] or plasma alkaline phosphatase measurement (enzymatic activity/volume)2019-09-25 05:45:00* Test Item Value Reference Range Interpretation Comments Alkaline Phosphatase (test code = 6768-6) 188 40-150 [facility]andCHEST SINGLE (PORTABLE)2019-09-24 17:47:00 [facility] [address] [place] [address] Patient Name: ADDY STEWARD MR #: [id number] : 1965 Age/Sex: 54/F Req #: [id number] Adm Physician: Ordered by: VON MARIN MD Report #: [id number] Location: ER Room/Bed: Procedure: [id number] DX/CHEST SINGLE ( PORTABLE) Exam Date: 09/24/19 Exam Time: 1640 REPORT STATUS: Signed EXAMINATION: CH EST SINGLE (PORTABLE) INDICATION: Altered mental status COMPARIS ON: None FINDINGS: TUBES and LINES: None. LUNGS: Norm al lung volumes. Lungs are clear. No consolidations. Bibasilar atelectasis. PLEURA: No pleural effusion or pneumothorax. HEART AND MEDIASTINUM: The cardiomediastinal silhouette is unremarkable. BONES AND SOFT TISSUE S: No acute osseous lesion. Soft tissues are unremarkable. UPPER ABDOME N: No free air under the diaphragm. IMPRESSION: No acute thoracic radiographic abnormality. Bibasilar atelectasis. Signed by: Nba larios MD on 09/24/2019 6:00 PM Dictated By: NBA MEAD MD 1800 Transcribed By: HARDIK on 1800 COPY TO: VON MARIN MD Urine color determination 2019-09-24 17:12:00* Test Item Value Reference Range Interpretation Comments Urine Color (test code = 5778-6) YELLOW YELLOW [facility]andUrine ucedvyu7044-88-35 17:12:00* Test Item Value Reference Range Interpretation Comments Urine Clarity (test code = 89221-0) HAZY CLEAR [facility] Systempecific gravity of Urine by Test strip 2019-09-24 17:12:00* Test Item Value Reference Range Interpretation Comments Urine Specific Prue (test code = 5811-5) <=1.005 1.010-1.02 5 [facility]and[facility] pH measurement by automated test emomc9517-15-33 17:12:00* Test Item Value Reference Range Interpretation Comments Urine pH (test code = 29901-8) 5.5 5-7 [facility]andU[facility] leukocyte esterase detection by lbnotfho5754-29-61 17:12:00* Test Item Value Reference Range Interpretation Comments Urine Leukocyte Esterase (test code = 5799-2) TRACE NEGATIVE [facility]andUrine nitrite slymtevat5163-92-35 17:12:00* Test Item Value Reference Range Interpretation Comments Urine Nitrite (test code = 02725-3) POSITIVE NEGATIVE [facility]and[facility] protein measurement by test strip (mass/volume)2019-09-24 17:12:00* Test Item Value Reference Range Interpretation Comments Urine Protein (test code = 5804-0) NEGATIVE NEGATIVE [facility]andU[facility] glucose nclcpvcws9848-59-99 17:12:00* Test Item Value Reference Range Interpretation Comments Urine Glucose (UA) (test code = 2349-9) NEGATIVE NEGATIVE [facility]andUrine ketones detection by automated test oueuq2301-93-03 17:12:00* Test Item Value Reference Range Interpretation Comments Urine Ketones (test code = 59706-9) NEGATIVE NEGATIVE [facility]andUrine opiates screening xlxr9484-96-65 17:12:00* Test Item Value Reference Range Interpretation Comments Urine Opiates Screen (test code = 50288-0) NEGATIVE NEGATIVE ALL TESTS PERFORMED MANUALLY ON Fancy TOX/SEE TESTCovenant Health LevellandBarbiturates screen, jbwlc4765-18-29 17:12:00* Test Item Value Reference Range Interpretation Comments Urine Barbiturates Screen (test code = 718396524) NEGATIVE NEGA TIVE [facility]andUrine phencyclidine detection by screening kmkqwv6168-28-37 17:12:00* Test Item Value Reference Range Interpretation Comments Urine Phencyclidine Screen (test code = 42347-4) NEGATIVE NEGAT DENG [facility]andUrine amphetamines detection by screen method > 1000 ng/qB3267-49-71 17:12:00* Test Item Value Reference Range Interpretation Comments Urine Amphetamines Screen (test code = 77898-2) NEGATIVE NEGATI VE [facility]andFluoroscopic procedure less than one hour rqxjvyfj6240-92-18 17:12:00* Test Item Value Reference Range Interpretation Comments Urine Methamphetamines Screen (test code = Urine Metha mphetamines Screen) NEGATIVE NEGATIVE [facility]andUrine benzodiazepines detection by screening jjszye8016-92-49 17:12:00* Test Item Value Reference Range Interpretation Comments Urine Benzodiazepines Screen (test code = 73209-1) NEGATIVE NEG ATIVE [facility]andUrine cocaine measurement (mass/volume) 2019-09-24 17:12:00* Test Item Value Reference Range Interpretation Comments Urine Cocaine Screen (test code = 3398-5) NEGATIVE NEGATIVE [facility]andUrine cannabinoids detection by screening dzidob4490-11-90 17:12:00* Test Item Value Reference Range Interpretation Comments Urine Cannabinoids Screen (test code = 06110-9) NEGATIVE NEGATI VE THESE RESULTS ARE FOR MEDICAL TREATMENT ONLYTHIS REPORT CONTAINS UNCONFIR MED SCREENING RESULTS*POSITIVE RESULTS WILL BE CONFIRMED BY REFERENCE LAB UPON R EQUEST CUT-OFFDRUG CLASS CONCENTRATION ng/mLAmphetamines 1000Methamphetamines 1000Cocaine 300Opiate 300Phencyc lidine 25Cannabinoid 50Barbiturates 300Benzodiazepine 300Methadone 300[facility]andUrine methadone dvzqux6735-73-77 17:12:00* Test Item Value Reference Range Interpretation Comments Urine Methadone Screen (test code = 98363-7) NEGATIVE NEGATIVE THESE RESULTS ARE FOR MEDICAL TREATMENT ONLYTHIS REPORT CONTAINS UNCONFIR MED SCREENING RESULTS*POSITIVE RESULTS WILL BE CONFIRMED BY REFERENCE LAB UPON R EQUEST CUT-OFFDRUG CLASS CONCENTRATION ng/mLAmphetamines 1000Methamphetamines 1000Cocaine Metabolite 300Opiate 300Phencyc lidine 25Cannabinoid 50Barbiturates 300Benzodiazepine 300Methadone 300[facility]andUrine urobilinogen measurement by test strip (mass/volume)2019-09-24 17:12:00* Test Item Value Reference Range Interpretation Comments Urine Urobilinogen (test code = 27214-1) 0.2 0.2-1 [facility]and[facility] total bilirubin measurement (mass/volume)2019-09-24 17:12:00* Test Item Value Reference Range Interpretation Comments Urine Bilirubin (test code = 1978-6) NEGATIVE NEGATIVE [facility]andUrine erythrocytes ulvbpiked9827-15-15 17:12:00* Test Item Value Reference Range Interpretation Comments Urine Blood (test code = 62447-6) TRACE NEGATIVE [facility]andAutomated urine sediment leukocyte count by microscopy (number/high power field)2019-09-24 17:12:00* Test Item Value Reference Range Interpretation Comments Urine WBC (test code = 5821-4) 0-5 0-5 [facility]andErythrocytes detection in urine sediment by light gszyvisrbh5440-14-98 17:12:00* Test Item Value Reference Range Interpretation Comments Urine RBC (test code = 48958-0) 0-5 0-5 [facility]andBacteria detection in urine sediment by light ecypwpvcmw5362-20-18 17:12:00* Test Item Value Reference Range Interpretation Comments Urine Bacteria (test code = 98369-9) MODERATE NONE [facility]andEpithelial cells detection in urine sediment by light ldzdnqweiu9448-10-96 17:12:00* Test Item Value Reference Range Interpretation Comments Urine Epithelial Cells (test code = 17374-7) FEW NONE [facility]ellandBacterial urine rlwonpx3903-23-52 17:12:00* Test Item Value Reference Range Interpretation Comments Urine Culture (test code = 630-4) GRAM NEGATIVE BACILLUS [facility]ellandCT BRAIN KC0999-84-68 17:06:00 [facility] [address] [address] Patient Name: ADDY STEWARD MR #: [id number] : 1965 Age/Sex: 54/F Req #: [id number] Adm Physician: Ordered by: VON MARIN MD Report #: [id number] Location: ER Room/Bed: Procedure: [id number] CT/CT BRAIN WO E xam Date: 09/24/19 Exam Time: 1640 REPORT STATUS: Signed Exam: Head CT without contra st History: Altered mental status Comparison studies: None Technique: Axial images were obtained from the skull base to the vertex. Coronal and s agittal images reconstructed from the axial data. Dose modulation, iterative reconstruction, and/or weight based adjustment of the mA/kV was utilized to re duce the radiation dose to as low as reasonably achievable. Radiation d ose: Total DLP: 1842 mGy*cm. Estimated effective dose: DLP x 0.015 Intr avenous contrast: None Findings: Scalp: No abnormalities. Bones: No fractures, blastic or lytic lesions. Brain sulci: Prominent. Ventricles: Mild compensatory dilatation. No hydrocephalus. Extra-axial spaces: No masses, no fluid collection. Parenchyma: No mass, acute hemorrhage or acute or chronic cortical insults. Ill-defined confluent hypodensities throughout the supratentorial white matter are nonspecific but may be chronic microvascular i schemic changes. Sellar/suprasellar region: No abnormalities. Craniocervi humaira junction: Patent foramen magnum. No Chiari one malformation. Incidental findings: Atherosclerotic calcifications in the carotid siphons.. IMPRE SSION: No acute intracranial abnormalities. Chronic findings: 1. M oderate generalized parenchymal volume loss. 2. Moderate microvascular ischem ic changes. Signed by: Dr. Nidia Washburn M.D. on 09/24/2019 5:11 PM D ictated By: NIDIA WASHBURN MD 10 Transcribed By: HARDIK on 09/24/191710 COPY TO: Alvaro MARIN MD Prothrombin time (PT) in platelet poor plasma by coagulation gzjle9304-94-98 15:57:00* Test Item Value Reference Range Interpretation Comments Prothrombin Time (test code = 5902-2) 15.2 11.9-14.5 [facility]andINR in Platelet poor plasma by Coagulation pmogj9400-27-91 15:57:00* Test Item Value Reference Range Interpretation Comments Prothromb Time International Ratio (test code = 6301-6) 1.14 Oral Anticoagulant Therapy INR Values:1. Low Intensity Therapy 1.5 - 2.02 . Moderate Intensity Therapy 2.0 - 3.03. High Intensity Therapy(1) 2.5 - 3. 54. High Intensity Therapy(2) 3.0 - 4.05. Panic Value INR > 5.0 [facility]ellandActivated partial thromboplastin time (aPTT) in platelet poor plasma by coagulation lkjse4531-63-75 15:57:00* Test Item Value Reference Range Interpretation Comments Activated Partial Thromboplast Time (test code = 21011-9) 40.0 23.8-35.5 [facility] or plasma creatine kinase measurement (enzymatic activity/volume)2019-09-24 15:57:00* Test Item Value Reference Range Interpretation Comments Creatine Kinase (test code = 2157-6) 92 29-168 [facility] Systemerum or plasma creatine kinase MB measurement (mass/volume)2019-09-24 15:57:00* Test Item Value Reference Range Interpretation Comments Creatine Kinase MB (test code = 70290-4) 1.40 0-5.0 [facility] by highly sensitive enzyme [id number] 15:57:00* Test Item Value Reference Range Interpretation Comments Troponin I (test code = 12628-2) 0.003 0-0.300 [facility] acetaminophen measurement by screening method (mass/volume)2019-09-24 15:57:00* Test Item Value Reference Range Interpretation Comments Acetaminophen Level (test code = 72780-3) < 3.0 10-30 [facility] [id number] 15:57:00* Test Item Value Reference Range Interpretation Comments Blood Culture (test code = 08170137) NO GROWTH AFTER 24 HOURS [facility]
--- NOTE | 2019-10-08 15:22 | Emergency Department Note ---
History of Present Illnes History of Present Illness Chief Complaint: General Medicine Complaints History of Present Illness This is a 54 year old female PT STATES HERE TO REFILL 2 EMPTY RX BOTTLE (CHLORDIAZEPOXIDE & PREDNISONE) PT DENIES ANY COMPLAINT. AAOX4. AMBULATORY. Historian: Patient Arrival Mode: Car Tree Doctor Required: No Onset (how long ago): day(s) Quality: NO COMPLAINTS Radiation: Reports non-radiation Chronicity: recurrent Context: Denies recent illness Relieving factors: none Exacerbating factors: none Associated symptoms: Reports denies other symptoms Past Medical/Family History Physician Review I have reviewed the patient's past medical and family history. Any updates have been documented here. Past Medical History Recent Fever: No Clinical Suspicion of Infectio: No New/Unexplained Change in Ment: No Past Medical History: Liver Disease, Anxiety, Depression Other Medical History: ETOH abuse, "stomach cancer" Past Surgical History: None Social History Smoking Cessation: Former smoker Counseling Performed: No Alcohol Use: None Any Illegal Drug Use: No Physically hurt or threatened: No Family History Family history of heart diseas: No Other Any Pre-Existing Lines (PICC,: No Review of Systems Review of Systems Constitutional: Reports no symptoms EENTM: Reports no symptoms Cardiovascular: Reports no symptoms Respiratory: Reports no symptoms Gastrointestinal: Reports no symptoms Genitourinary: Reports no symptoms Musculoskeletal: Reports no symptoms Integumentary: Reports no symptoms Neurological: Reports no symptoms Psychological: Reports no symptoms Endocrine: Reports no symptoms Hematological/Lymphatic: Reports no symptoms Physical Exam Related Data Allergies: Coded Allergies: No Known Allergies (Unverified , 09/24/19) Triage Vital Signs Vital Signs Date Time Temp Pulse Resp B/P (MAP) Pulse Ox O2 Delivery O2 Flow Rate FiO2 10/08/19 13:06 98.3 82 16 103/71 100 Room Air Vital signs reviewed: Yes Physical Exam CONSTITUTIONAL Constitutional: Present well-developed, Present well-nourished HENT HENT: Present normocephalic, Present atraumatic, Present oropharynx clear/moist, Present nose normal HENT L/R: Present left ext ear normal, Present right ext ear normal EYES Eyes: Reports PERRL, Reports conjunctivae normal NECK Neck: Present ROM normal PULMONARY Pulmonary: Present effort normal, Present breath sounds normal CARDIOVASCULAR Cardiovascular: Present regular rhythm, Present heart sounds normal, Present capillary refill normal, Present normal rate GASTROINTESTINAL Abdominal: Present soft, Present nontender, Present bowel sounds normal GENITOURINARY Genitourinary: Present exam deferred SKIN Skin: Present warm, Present dry MUSCULOSKELETAL Musculoskeletal: Present ROM normal NEUROLOGICAL Neurological: Present alert, Present oriented x 3, Present no gross motor or sensory deficits PSYCHOLOGICAL Psychological: Present mood/affect normal, Present judgement normal Assessment & Plan Medical Decision Making MDM NO EMERGENCY Reassessment Reassessment PT TO CALL PCP FOR ANY REFILLS Assessment & Plan Final Impression: (1) Encounter for medication refill Depart Disposition: HOME, SELF-CARE Last Vital Signs Date Time Temp Pulse Resp B/P (MAP) Pulse Ox O2 Delivery O2 Flow Rate FiO2 10/08/19 13:06 98.3 82 16 103/71 100 Room Air Home Meds Reported Medications Lactulose (LACTULOSE) 20 Gm/30 Ml Solution, 30 ML PO TID, EACH 09/25/19 Chlordiazepoxide Hcl (CHLORDIAZEPOXIDE HCL) 25 Mg Capsule, 25 MG PO Q6H PRN for RESTLESSNESS, CAP 09/25/19 Paroxetine Hcl (PAXIL) 10 Mg Tablet, 10 MG PO DAILY, TAB 09/24/19 Thiamine HCl (B-1) 100 Mg Tablet, 100 MG PO DAILY 09/24/19 Prednisone (PREDNISONE) 10 Mg Tab, 10 MG PO DAILY for 10 Days, #10 TAB 09/24/19 VON MARIN MD Oct 08, 2019 15:22
== END 2019-10-08 15:47 | disposition home or self-care (01) ==
LOC: ER 13:01
DX: Z76.0 Encounter for issue of repeat prescription (principal); K76.9 Liver disease, unspecified; F41.9 Anxiety disorder, unspecified; Z85.028 Personal history of other malignant neoplasm of stomach
CPT/HCPCS: 99282

== ENCOUNTER 2020-10-14 14:21 | Emergency (ER) | payer SELFPAY ==
[~2020-10-14] VITALS: Ht 160 cm; Wt 59.0 kg
[2020-10-14] MEDS ORDERED: SODIUM CHLORIDE 0.9% 500ML 500 ML IV ONE (15:00)
[2020-10-14 15:15] LABS: BASOPHILS # (AUTO) 0.1 (0.0-0.1); BASOPHILS % 0.6 % (0.0-1.0); EOSINOPHILS # (AUTO) 0.1 (0.0-0.4); EOSINOPHILS % 0.8 % (0.0-6.0); HEMATOCRIT 29.7 % (34.2-44.1); HEMOGLOBIN 10.2 g/dL (12.0-16.0); LYMPHOCYTES # (AUTO) 1.6 (1.0-3.2); LYMPHOCYTES % 14.6 % (18.0-39.1); MEAN CORPUSCULAR HGB CONC 34.3 g/dL (31-35); MEAN CORPUSCULAR VOLUME 104.9 fL (81-99); MONOCYTES # (AUTO) 2.2 (0.2-0.8); MONOCYTES % 19.9 % (4.4-11.3); NEUTROPHILS # (AUTO) 6.8 (2.1-6.9); NEUTROPHILS % 63.4 % (38.7-80.0); PLATELET COUNT 147 x10e3/uL (140-360); RED BLOOD COUNT 2.83 x10e6/uL (3.6-5.1); RED CELL DISTRIBUTION WIDTH 24.5 % (11.7-14.4)
[2020-10-14 15:39] LABS: ALANINE AMINOTRANSFERASE 27 IU/L (0-55); ALBUMIN 2.3 g/dL (3.5-5.0); ALBUMIN/GLOBULIN RATIO 0.4 (0.8-2.0); ALKALINE PHOSPHATASE 128 IU/L (40-150); ANION GAP 16.9 mmol/L (8-16); BLOOD UREA NITROGEN 8 mg/dL (7-26); BUN/CREATININE RATIO 15 (6-25); CARBON DIOXIDE 28 mmol/L (22-29); CHLORIDE 90 mmol/L (98-107); CREATINE KINASE 7 IU/L (29-168); CREATININE, SERUM 0.52 mg/dL (0.57-1.11); EST GLOMERULAR FILTRATION RATE 122 ML/MIN (60-); GLUCOSE 105 mg/dL (74-118); MAGNESIUM 1.2 MG/DL (1.3-2.1); SODIUM 132 mmol/L (136-145)
[2020-10-14 15:41] LABS: INR 1.65; PROTHROMBIN TIME 19.8 seconds (11.9-14.5)
[2020-10-14 15:42] LABS: PARTIAL THROMBOPLASTIN TIME 41.1 seconds (23.8-35.5)
[2020-10-14 16:08] LABS: CALCIUM 8.3 mg/dL (8.4-10.2); CREATINE KINASE MB < 0.10 ng/mL (0-5.0); POTASSIUM 2.9 mmol/L (3.5-5.1)
[2020-10-14] MEDS ORDERED: POTASSIUM CHLORIDE 20MEQ/15ML UDC PO ONE (16:45)
[2020-10-14] MEDS ORDERED: SODIUM CHLORIDE 0.9% 50ML 50 ML ONE (16:59)
[2020-10-14] MEDS ORDERED: IOPAMIDOL 370 MG/ML 200 ML INFUS..BTL INJ ONE (17:00)
[2020-10-14 17:01] LABS: COLOR,URINE AMBER (YELLOW)
[2020-10-14 17:02] LABS: CLARITY,URINE CLOUDY (CLEAR); KETONES,URINE TRACE (NEGATIVE); LEUKOCYTE ESTERASE ,URINE TRACE (NEGATIVE); NITRITE,URINE NEGATIVE (NEGATIVE); PROTEIN,URINE DIPSTICK 1+ (NEGATIVE); URINE UROBILINOGEN 2 mg/dL (0.2 - 1)
[2020-10-14] MEDS ORDERED: OCTREOTIDE ACETATE 0.05 MG/ML AMP IV STA (17:10)
[2020-10-14] MEDS ORDERED: OCTREOTIDE ACETATE 600 MCG in SODIUM CHLORIDE 0.9% 250ML 300 ML IV SCH (17:15)
[2020-10-14 17:18] LABS: BACTERIA,URINE MANY /HPF; EPITHELIAL CELLS,URINE MODERATE /LPF; RBC,URINE 0-5 /HPF (0-5)
[2020-10-14] MEDS ORDERED: CEFTRIAXONE 1 GM in SODIUM CHLORIDE 0.9% 50ML 50 ML IV ONE (17:30)
[2020-10-14 17:48] LABS: AMPHETAMINES SCREEN,URINE NEGATIVE (NEGATIVE); BENZODIAZEPINES SCREEN,URINE NEGATIVE (NEGATIVE); PHENCYCLIDINE SCREEN,URINE NEGATIVE (NEGATIVE)
[2020-10-14 18:15] LABS: SALICYLATE < 5.0 mg/dL (0-30)
[2020-10-14] MEDS ORDERED: POTASSIUM CHLORIDE 20 MEQ TAB CR PO STA (19:13)
[2020-10-14] MEDS ORDERED: LACTULOSE SYRUP 20 GM/30 ML UDC PO ONE (19:15)
[2020-10-14 19:57] VITALS: BP 110/67
== END 2020-10-14 20:03 | disposition other institution (70) ==
LOC: ER 15:01
DX: R42 Dizziness and giddiness (principal); K70.30 Alcoholic cirrhosis of liver without ascites; K72.90 Hepatic failure, unspecified without coma; E87.6 Hypokalemia; R94.31 Abnormal electrocardiogram [ECG] [EKG]; Z20.822 Contact with and (suspected) exposure to COVID-19
CPT/HCPCS: 36415; 70450; 71045; 74177; 80053; 80307; 80320; 80329 ×2; 81001; 82140; 82550; 82553; 83735; 84484; 85025; 85610; 85730; 86850; 86900; 87086; 87186; 93005; 99284; C9113; J0696; J7040; Q9967; U0002